=== PATIENT | male | born 1975 | race Caucasian/White ===

== ENCOUNTER → 2022-11-04 | Outpatient (CLI) | payer BC, OTHER ==
--- NOTE | 2022-11-04 10:52 | Diagnostic Imaging Report ---
INDICATION: Left knee pain, no known injury AP, lateral, and sunrise views left knee are obtained. No fracture or acute bony abnormality is seen. Joint spaces are unremarkable. IMPRESSION: Negative left knee. Dictated by: Dictated on workstation # [id number]
== END ==
LOC: ORTHO 08:40
PROVIDERS: ATTEND Orthopaedic Surgery
DX: M25.562 Pain in left knee (principal)
CPT/HCPCS: 73562; G0463; 99203

== ENCOUNTER → 2022-11-18 | Outpatient (CLI) | payer OTHER ==
--- NOTE | 2022-11-18 09:59 | Diagnostic Imaging Report ---
PROCEDURE: MRI left joint lower extremity without contrast. TECHNIQUE: Multiplanar, multisequence non contrast-enhanced MRI of the left lower extremity was accomplished. INDICATION: Old injury. Increasing pain recently. EXAMINATION: Left lower extremity MRI without contrast 11/18/2022. FINDINGS: The extensor mechanism is intact. The ACL and PCL appear intact. The MCL is intact but thickened perhaps due to an old injury. Lateral collateral ligamentous complex appears intact. There is a multidirectional tear involving the posterior horn of the medial meniscus. This extends to the meniscal body. The lateral meniscus appears intact. There is minimal loss of cartilage in the medial compartment. Cartilage in the lateral joint spaces maintained. Minimal fissuring of the cartilage is noted along the patellar apex. There is a small underlying joint effusion. IMPRESSION: 1. Tear of the posterior horn and body of the medial meniscus with the lateral meniscus intact 2. Old MCL injury which with the MCL thickened in appearance but no acute abnormality appreciated. Remaining ligaments and tendons intact. 3. Mild degenerative findings within the patellofemoral joint space and medial joint compartment. Dictated by: Dictated on workstation # [id number]
== END ==
LOC: RAD 08:20
PROVIDERS: ATTEND Orthopaedic Surgery
DX: S83.242A Other tear of medial meniscus, current injury, left knee, initial encounter (principal); M17.12 Unilateral primary osteoarthritis, left knee; X58.XXXA Exposure to other specified factors, initial encounter
CPT/HCPCS: 73721

== ENCOUNTER 2022-11-26 06:12 | Outpatient (CLI) | payer OTHER ==
[~2022-11-26] VITALS: Ht 177.8 cm; Wt 106.8 kg
[2022-11-26] MEDS ORDERED: LISI5TAB20 PO (13:33)
[2022-11-26] MEDS ORDERED: ISOS30TA82 PO (13:33)
[2022-11-26] MEDS ORDERED: CARV6.252 PO (13:33)
[2022-11-26] MEDS ORDERED: TEST1.257 TD (13:33)
[2022-11-26] MEDS ORDERED: ASPI-999 PO (13:33)
[2022-11-26] MEDS ORDERED: PANT40TA52 PO (13:33)
[2022-11-26] MEDS ORDERED: ATOR80TA76 PO (13:33)
[2022-11-26] MEDS ORDERED: PRAS10TA10 PO (13:33)
== END 2022-11-26 13:49 | disposition home or self-care (01) ==
LOC: PREOP 06:12
PROVIDERS: ATTEND Orthopaedic Surgery
DX: Z01.818 Encounter for other preprocedural examination (principal)

== ENCOUNTER 2022-11-28 08:35 | Day surgery (SDC) | payer OTHER ==
[~2022-11-28] VITALS: Ht 177.8 cm; Wt 106.8 kg
[2022-11-28] VITALS (9 sets, daily range): BP systolic 107–166; BP diastolic 50–94
[~2022-11-28 08:35] MED LIST: ASPI-999 PO; ATOR80TA76 PO; CARV6.252 PO; ISOS30TA82 PO; LISI5TAB20 PO; PANT40TA52 PO; PRAS10TA10 PO; TEST1.257 TD
[2022-11-28] MEDS ORDERED: ceFAZolin INJECTION 2,000 MG in NS (IVPB) 50 ML IV ONE (08:45)
[2022-11-28] MEDS ORDERED: LACTATED RINGERS 1,000 ML IV PRN (08:45)
[2022-11-28] MEDS ORDERED: ceFAZolin INJECTION 2,000 MG ONE (08:50)
[2022-11-28] MEDS ORDERED: NS (IVPB) 50 ML ONE (08:50)
[2022-11-28] MEDS ORDERED: CATHETER FLUSH 10 ML SYR IVP PRN (09:00)
[2022-11-28] MEDS ORDERED: LIDOCAINE PF 2% 5 ML (XYLOCAINE) VIAL ONE (09:24)
[2022-11-28] MEDS ORDERED: proPOfol 200 MG/20 ML (DIPRIVAN) VIAL IV ONE (09:24)
[2022-11-28] MEDS ORDERED: MIDAZOLAM 2 MG/2 ML (VERSED) VIAL ONE (09:25)
[2022-11-28] MEDS ORDERED: fentaNYL INJ 100 MCG/2 ML AMP ONE (09:25)
[2022-11-28] MEDS ORDERED: ONDANSETRON 4 MG/2 ML (SDV) Z0FRAN ONE (09:28)
[2022-11-28] MEDS ORDERED: BUP/EPI 0.25% 1:200,000 (MARCAINE) 30 ML VIAL ONE (10:03)
[2022-11-28] MEDS ORDERED: SEVOFLURANE (ULTANE) 15 ML INHAL SOLN ONE (10:11)
[2022-11-28] MEDS ORDERED: BUP/EPI 0.25% 1:200,000 (MARCAINE) 30 ML VIAL INJ ONE (10:26)
--- NOTE | 2022-11-28 10:28 | Operative Report - Ortho ---
Operative Report Surgeon (s)/Hotel Superintendent (s) Surgeon RENE CHA MD Hotel Superintendent n/a Pre-Operative Diagnosis LEFT KNEE MMT Post-Operative Diagnosis same Operative Report Date of Procedure: Nov 28, 2022 Name of Procedure Performed: Left Knee Arthroscopy with Partial Medial Meniscectomy Description & Findings After obtaining informed consent and marking the patient in the preoperative holding area, the patient was administered IV antibiotics and taken to the operating room. General anesthesia was induced. The right lower extremity was placed in the well leg eaton and the left leg was placed in the arthroscopic eaton. Surgical timeout was taken. The left lower extremity was prepped and draped in the usual sterile fashion. An anterolateral portal was established and a diagnostic knee arthroscopy was performed with the following findings: the patellofemoral portion of the joint demonstrated grade I change, the patella tracked well through the trochlear groove, the gutters were free of loose bodies, there was a medial meniscus tear at the junction of the body and the posterior horn, grade II change in the medial compartment, ACL was intact, lateral compartment with intact meniscus and articular cartilage. An anteromedial portal was established. Probe was inserted and the meniscal tear was explored. Basket biter was inserted and the medial meniscus tear was grossly debrided. Shaver was inserted and the area of meniscectomy was debrided to a stable border. Probe was reinserted and confirmed that the mensicectomy was stable. Instruments were withdrawn. Wounds were closed with 3-0 nylon and dressed with xeroform, 4x4s, ABD, cast padding, and MAIK wrap. Patient tolerated the procedure well and was stable to the recovery room. Anesthesia Type General Estimated Blood Loss minimal Specimen(s) collected/removed None RENE CHA MD Nov 28, 2022 10:28
[2022-11-28] MEDS ORDERED: OXC5T PO (10:31)
--- NOTE | 2022-11-28 11:24 | Anesthesia-General Post-Op ---
General Patient Condition Mental Status/LOC: Same as Preop Cardiovascular: Satisfactory Nausea/Vomiting: Absent Respiratory: Satisfactory Pain: Controlled Complications: Absent Post Op Complications Complications None Follow Up Care/Instructions Patient Instructions None needed. Anesthesia/Patient Condition Patient Condition Patient is doing well, no complaints, stable vital signs, no apparent adverse anesthesia problems. No complications reported per nursing. KERRY CORONA CRNA Nov 28, 2022 11:24
[2022-11-28] MEDS ORDERED: oxyCODONE/APAP 5/325MG (PERCOCET 5) TABLET ONE (11:38)
[2022-11-28] MEDS ORDERED: oxyCODONE/APAP 5/325MG (PERCOCET 5) TABLET PO ONE (11:45)
== END 2022-11-28 11:57 | disposition home or self-care (01) ==
LOC: SDC 08:35
PROVIDERS: ATTEND Orthopaedic Surgery
DX: S83.242A Other tear of medial meniscus, current injury, left knee, initial encounter (principal); K21.9 Gastro-esophageal reflux disease without esophagitis; E66.9 Obesity, unspecified; Z87.891 Personal history of nicotine dependence; X58.XXXA Exposure to other specified factors, initial encounter; Z68.33 Body mass index [BMI] 33.0-33.9, adult
CPT/HCPCS: 87081

== ENCOUNTER → 2022-12-25 | Outpatient (CLI) | payer OTHER ==
[~2022-12-25] MED LIST changes: +OXC5T PO
== END ==
LOC: ORTHO 09:12
PROVIDERS: ATTEND Orthopaedic Surgery
DX: Z47.89 Encounter for other orthopedic aftercare (principal); I10 Essential (primary) hypertension; E78.5 Hyperlipidemia, unspecified

== ENCOUNTER → 2023-02-05 | Outpatient (CLI) | payer OTHER | LOC: ORTHO 08:23 | PROVIDERS: ATTEND Orthopaedic Surgery | DX: Z47.89 Encounter for other orthopedic aftercare (principal) ==

== ENCOUNTER → 2023-02-25 | Outpatient (CLI) | payer OTHER | LOC: ORTHO 09:14 | PROVIDERS: ATTEND Orthopaedic Surgery | DX: M25.562 Pain in left knee (principal) | CPT/HCPCS: 99213 ==

== ENCOUNTER → 2023-03-10 | Outpatient (CLI) | payer OTHER ==
--- NOTE | 2023-03-10 10:58 | Diagnostic Imaging Report ---
EXAMINATION: Magnetic resonance imaging of the left knee without intravenous contrast DATE: March 10, 2023. COMPARISON: MRI left knee November 18, 2022. INDICATION: 47-year-old male, left knee pain. TECHNIQUE: Multiplanar, multisequence non contrast enhanced MR imaging was accomplished. FINDINGS: MENISCI: There is an oblique tear involving the anterior horn, body, and posterior horn of the medial meniscus. There is more complex tearing at the level of the body of the medial meniscus. There is no current medial meniscal extrusion. The lateral meniscus is intact. LIGAMENTS AND TENDONS: The anterior and posterior cruciate ligaments are intact. There is thickening of the superficial component of the medial collateral ligament complex likely relating to remote prior injury. The iliotibial band, mid third lateral capsular ligament, fibular collateral ligament, biceps femoris tendon and conjoined tendon are intact. The quadriceps tendon and patella ligament are intact. JOINT: There is approximately 25% generalized thinning of the mid weightbearing portions of the cartilage of the medial femoral condyle and medial tibial plateau. There is no knee joint effusion, prominent synovitis, or intra-articular body. BONE: There is no acute fracture, bone contusion, or evidence of osteonecrosis. BURSAE AND SOFT TISSUES: No Bakers cyst. IMPRESSION: 1. Oblique tear of the anterior horn, body, posterior horn of the medial meniscus with more complex extensive tearing at the level of the body of the medial meniscus without current medial meniscal extrusion. The extent of the tear appears mildly increased since November 18, 2022 at the level of the body of the medial meniscus. 2. Remote prior injury to the superficial component of the medial collateral ligament complex. 3. Intact anterior and posterior cruciate ligaments. 4. 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 5. No acute fracture, bone contusion, or evidence of osteonecrosis. Dictated by: Dictated on workstation # [id number]
== END ==
LOC: RAD 07:56
PROVIDERS: ATTEND Orthopaedic Surgery
DX: M17.12 Unilateral primary osteoarthritis, left knee (principal); S83.242A Other tear of medial meniscus, current injury, left knee, initial encounter
CPT/HCPCS: 73721